=== PATIENT | female | born 1945 | race Caucasian/White ===

== ENCOUNTER 2016-11-27 08:18 | Day surgery (SDC) | payer MEDICARE, OTHER ==
[2016-11-26 09:48] LABS: HEMATOCRIT 38.6 % (36.0-48.0); HEMOGLOBIN 12.6 g/dL (12.0-16.0)
[2016-11-26 10:02] LABS: A/G RATIO 1.1 (0.7-1.9); ALBUMIN 3.6 G/DL (3.5-5.0); ALKALINE PHOSPHATASE 60 U/L (45-117); BUN (BLOOD UREA NITROGEN) 16 MG/DL (6-23); CALCIUM, SERUM 8.9 MG/DL (8.5-10.4); CHLORIDE, SERUM 105 MMOL/L (96-112); CO2 (CARBON DIOXIDE) 28 MMOL/L (24-34); CREATININE 0.85 MG/DL (0.55-1.02); GFR AFRICAN AMERICAN 79 ML/MIN (>=60); GFR NON AFRICAN AMERICAN 68 ML/MIN (>=60); GLOBULIN 3.2 G/DL (2.5-4.1); GLUCOSE, SERUM 88 MG/DL (60-99); POTASSIUM, SERUM 4.3 MMOL/L (3.5-5.3); SGOT(AST) 20 U/L (5-40); SGPT(ALT) 22 U/L (5-65); SODIUM, SERUM 143 MMOL/L (135-148); TOTAL BILIRUBIN 0.3 MG/DL (0-1.2); TOTAL PROTEIN 6.8 G/DL (6.0-8.5)
--- NOTE | ~2016-11-27 | OP ---
Record Of Operation [facility] [address] [place]. [address] NAME: DA GRAMAJO : 43 STATUS : REG [facility]#: [id number] AGE: 71 ADM/REG DATE : 11/27/16 MR#: [id number] REPORT SERV DATE: 11/27/16 DICTATED BY: MARÍA COOLEY DATE: 11/27/16 REPORT STATUS : Draft TRANSCRIBED BY: ROCKY DATE: 11/27/16 DATE OF PROCEDURE: 11/27/2016 PREOPERATIVE DIAGNOSIS: Right breast calcifications, biopsy-proven papilloma, with atypical ductal hyperplasia. POSTOPERATIVE DIAGNOSIS: Right breast calcifications, biopsy-proven papilloma, with atypical ductal hyperplasia. PROCEDURE: Right breast excisional biopsy, 9 o'clock segment. INDICATION FOR THE PROCEDURE: Ms Gramajo is a 71-year-old, female, who came in secondary to calcifications in the right breast near the nipple. Stereotactic biopsy was performed, and that pathology report did show a sclerosed papilloma with atypical ductal hyperplasia, and an adjacent mucocele like lesion. Excisional biopsy is warranted. OPERATIVE FINDINGS: After appropriate consent was on the chart, the patient was taken to the operating room in supine position. She was placed under general anesthesia without any complications. Ultrasound was utilized to visualize the clip and hematoma in the right breast at the 9 o'clock position. This was marked on the patient's skin. The patient's right breast was prepped and draped in sterile fashion. An incision was made at the areolar edge. Sharp dissection was carried down to the level of the breast parenchyma and flaps were created in all directions around the palpable hematoma. This was excised fully and marked with sutures. It was sent for permanent pathology. The wound was copiously irrigated with warm saline, and hemostasis was achieved, local anesthetic infiltrated in the skin and soft tissues. The incision was closed in two layers of Monocryl. The skin was cleansed and dried and Dermabond overlaid. Once the Dermabond had dried, burn fluff and a binder were placed on the patient. She was awoken from anesthesia without complication, taken the PACU in stable condition for recovery. All counts were correct at the end of the case. ESTIMATED BLOOD LOSS: 10 mL. COMPLICATIONS: None. SPECIMEN: Right breast 9 o'clock segment. SUHAS/ROCKY María Cooley MD / [id number] Record Of Operation [place] [address] [address] [id number] NAME: DA GRAMAJO : 43 [place]US : [place] [facility] [place] [id number] AGE: 71 ADM/REG DATE : 11/27/16 MR#: [id number] REPORT SERV DATE: 11/27/16 DICTATED BY: MARÍA COOLEY DATE: 11/27/16 REPORT STATUS : Draft TRANSCRIBED BY: MODL DATE: 11/27/16 CC: MD Corazon Mcallister M.D. [facility]
[~2016-11-27 08:18] MED LIST: MULTIPLE VIT PO; PRESERVISION A1 EAC1 PO; PVC V
== END 2016-11-27 12:13 | disposition home or self-care (01) ==
LOC: SDC 08:18
PROVIDERS: Surgery Surgical Oncology
PROC: 0HBT0ZX Excision of Right Breast, Open Approach, Diagnostic (ICD-10-PCS; principal; 2016-11-27 10:15)
DX: N60.91 Unspecified benign mammary dysplasia of right breast (principal); Z90.710 Acquired absence of both cervix and uterus; Z88.5 Allergy status to narcotic agent
CPT/HCPCS: 71020; 80053; 85014; 85018; 88307; 93005; J0690; J2250; J2405; J3010